=== PATIENT | female | born 1960 | race Caucasian/White ===

== ENCOUNTER 2021-08-11 04:48 | Day surgery (SDC) | payer OTHER ==
[2021-08-09 14:09] VITALS: BMI 27.3
[2021-08-11 08:41] VITALS: TEMP 97.5
[2021-08-11 09:16] VITALS: BP 128/65; PULSE 86
== END 2021-08-11 09:16 | disposition home or self-care (01) ==
LOC: JASU-ENDO 04:48
PROVIDERS: ATTEND Internal Medicine Gastroenterology
PROC: 0DBL8ZX Excision of Transverse Colon, Via Natural or Artificial Opening Endoscopic, Diagnostic (ICD-10-PCS; principal; 2021-08-11 08:00)
DX: K57.30 Diverticulosis of large intestine without perforation or abscess without bleeding (principal); D12.3 Benign neoplasm of transverse colon; K63.89 Other specified diseases of intestine; K64.8 Other hemorrhoids
CPT/HCPCS: 88305-TC

== ENCOUNTER 2021-09-10 11:29 | Emergency (ER) | payer OTHER ==
[2021-09-10 11:55] VITALS: BP 144/74; PULSE 100; TEMP 98.8; BMI 26.6
== END 2021-09-10 13:25 | disposition home or self-care (01) ==
LOC: FER 11:29
DX: S89.91XA Unspecified injury of right lower leg, initial encounter (principal); Y99.8 Other external cause status
CPT/HCPCS: 93971-TC; 99283-25